=== PATIENT | female | born 1950 | race Caucasian/White ===

== ENCOUNTER 2024-11-13 01:17 | Day surgery (SDC) | payer MEDICARE, BC, SELFPAY ==
[2024-11-04 14:39] VITALS: BMI 26.1
--- NOTE | 2024-11-04 14:56 | PC.NURSE ---
[facility] has started construction of its new state of the art ER which will open Spring 2026. With this, we anticipate parking may be a challenge for some our surgical patients and families. Parking spaces are limited but are available for all Surgical, obstetrics, and ER patients sharing this lot. If you arrive and find you are having a hard time finding a parking space, please note that we understand the challenges, please drive around the hospital and park near Hospital Entrance 1. When you enter this entrance, you can ask a volunteer to direct or take you back to the surgical waiting area to check in. We appreciate everyone?s understanding of these expected challenges while we build for your future. Report to the Outpatient Waiting Room, entrance under the green pavilion located off [address], at time _09:15am on date _11/13/24 . Planned Procedure Time: _11:15am .? Time changes happen often and if your time is changed the preop area will call you the afternoon before. - You and your visitor will be asked to self-screen and do not enter if you have any COVID symptoms. Please call surgeon if you need to reschedule. - A mask is optional within the hospital at this time. Patients may have clear liquids (water, carbonated beverages, clear teas, apple juice) until 3 hours prior to surgery with a maximum of 20 ounces. - No food from midnight until time of surgery and no smoking, or chewing tobacco (or any form of nicotine). No chewing gum, candy or mints. (0815am) Take only the following medications with a SIP of water on the morning of surgery: ___Metoprolol , Tylenol if needed DO NOT STOP ANY OF YOUR OTHER PRESCRIPTION MEDICATIONS PRIOR TO SURGERY EXCEPT THE FOLLOWING Hold all vitamins and supplements for 3 days per anesthesiologist. Medications to discontinue per physician ____NONE Date to take last dose___NONE Please no make-up, nail mongolian, hairspray, perfume, deodorant, or body powder the day of surgery.? No jewelry (including any body piercings) or valuables the day of surgery, leave them at home.? Please take a shower or bath the night before, or the morning of, surgery with an antibacterial soap.? Wear comfortable, loose fitting clothing.? - Jewelry must be removed prior to entering the operating room.? Rings and piercings that are not removed may be cut off. - The hospital will not accept responsibility for valuables.? - Please leave all valuables, including medications, at home the day of surgery. If you are going home after surgery, a licensed log truck driver must drive you home.? - NO public transportation without another adult if you receive anesthesia. - We recommend that an adult stay with you for 24 hours following discharge. - We also recommend that you do not drive, make important decision, drink alcoholic beverages, or take any drugs that were not prescribed by your health care provider for at least 24 hours after your discharge time. Follow any additional instructions given to you from your surgeon. Telephone instructions given to ___Patient and asked if any additional questions and then verbalized understanding. Patient advised to call surgeon office or pre surgery nurse liaison [phone] if any additional questions.
--- NOTE | 2024-11-08 09:05 | P.HP_ITS ---
H&P: HPI History of Present Illness Date/Time: 11/08/24 09:05 Chief Complaint: urge incontinnce Narrative: successful trial of SNS Review of Systems Review of Systems: All systems reviewed & are unremarkable except as noted in HPI and below [facility] Social History Social History Smoking status: Never smoker Second hand tobacco smoke exposure: No Alcohol intake: never Substance use: never Living arrangements: with family Additional living arrangements comments: Spiritual care concerns: No Meds Home Medications and Allergies Home Medications ?Medication ?Instructions ?Recorded ?Confirmed ?Type Lactobacillus 1 cap PO DAILY 11/04/2410/13 History acidophilus-Bifidobac.animalis 33 billion cell capsule (Bilac) citalopram 20 mg tablet 20 mg PO DAILY 11/04/2410/13 History estradiol 0.01% (0.1 mg/gram) 1 appful vaginal WEEKLY 11/04/24 11/04/24 History vaginal cream fluticasone propionate 50 2 spray intranasal Q12H PRN 11/04/24 11/04/24 History mcg/actuation nasal allergy symptoms spray,suspension levocetirizine 5 mg tablet 5 mg PO DAILY PRN allergy s ymptoms 11/04/24 11/04/24 History meclizine 12.5 mg tablet 12.5 mg PO ONCE PRN dizzines s 11/04/24 11/04/24 History meloxicam 15 mg tablet 15 mg PO DAILY 11/04/2410/13 History metoprolol succinate 50 mg 50 mg PO DAILY 11/04/24 History tablet,extended release 24 hr minoxidil 2.5 mg tablet 0.625 mg PO DAILY PRN hair l oss 11/04/24 11/04/24 History montelukast 10 mg tablet 10 mg PO DAILY 11/04/2410/13 History nystatin 100,000 unit/gram topical 1 applic topical DA BEBO 11/04/24 11/04/24 History ointment omeprazole 20 mg capsule,delayed 20 mg PO DAILY 11/04/24 History release rosuvastatin 40 mg tablet 40 mg PO HS 11/04/24 5 History sitagliptin phosphate 50 1 tablet PO .BID w meals 11/04/24 History mg-metformin 500 mg tablet (Janumet) tramadol 50 mg tablet 50 mg PO Q6-8H PRN pain 10/1311/04/24 History vibegron 75 mg tablet (Gemtesa) 75 mg PO DAILY 5 11/04/24 History Allergies Allergy/AdvReac Type Severity Reaction Status Date / Time ciprofloxacin AdvReac Intermediate ITCHING Verified 11/04/24 14:34 gemfibrozil AdvReac Intermediate Itching Verified 11/04/24 14:34 and Chest pressure gentamicin AdvReac Intermediate chest Verified 11/04/24 14:34 pressure nitrofurantoin (From AdvReac Intermediate rash Verified 11/04/24 14:34 Macrobid) Exam Narrative: NAD normal breathing A+O x3 Assessment and Plan Assessment and plan (1) Urge incontinence: Code(s): N39.41 - Urge incontinence Status: Acute Assessment and Plan: InterStim implant
--- NOTE | 2024-11-08 09:05 | PM.IMHP ---
H&P: HPI History of Present Illness Date/Time: 11/08/24 09:05 Chief Complaint: urge incontinnce Narrative: successful trial of SNS Review of Systems Review of Systems: All systems reviewed & are unremarkable except as noted in HPI and below [facility] Social History Social History Smoking status: Never smoker Second hand tobacco smoke exposure: No Alcohol intake: never Substance use: never Living arrangements: with family Additional living arrangements comments: Spiritual care concerns: No Meds Home Medications and Allergies Home Medications ?Medication ?Instructions ?Recorded ?Confirmed ?Type Lactobacillus 1 cap PO DAILY 11/04/24 11/04/24 History acidophilus-Bifidobac.animalis 33 billion cell capsule (Bilac) citalopram 20 mg tablet 20 mg PO DAILY 11/04/24 11/04/24 History estradiol 0.01% (0.1 mg/gram) 1 appful vaginal WEEKLY 11/04/24 11/04/24 History vaginal cream fluticasone propionate 50 2 spray intranasal Q12H PRN 11/04/24 11/04/24 History mcg/actuation nasal allergy symptoms spray,suspension levocetirizine 5 mg tablet 5 mg PO DAILY PRN allergy symptoms 11/04/24 11/04/24 History meclizine 12.5 mg tablet 12.5 mg PO ONCE PRN dizziness 11/04/24 11/04/24 History meloxicam 15 mg tablet 15 mg PO DAILY 11/04/24 11/04/24 History metoprolol succinate 50 mg 50 mg PO DAILY 11/04/24 11/04/24 History tablet,extended release 24 hr minoxidil 2.5 mg tablet 0.625 mg PO DAILY PRN hair loss 11/04/24 11/04/24 History montelukast 10 mg tablet 10 mg PO DAILY 11/04/24 11/04/24 History nystatin 100,000 unit/gram topical 1 applic topical DAILY 11/04/24 11/04/24 History ointment omeprazole 20 mg capsule,delayed 20 mg PO DAILY 11/04/24 11/04/24 History release rosuvastatin 40 mg tablet 40 mg PO HS 11/04/24 11/04/24 History sitagliptin phosphate 50 1 tablet PO .BID w meals 11/04/24 11/04/24 History mg-metformin 500 mg tablet (Janumet) tramadol 50 mg tablet 50 mg PO Q6-8H PRN pain 11/04/24 11/04/24 History vibegron 75 mg tablet (Gemtesa) 75 mg PO DAILY 11/04/24 11/04/24 History Allergies Allergy/AdvReac Type Severity Reaction Status Date / Time ciprofloxacin AdvReac Intermediate ITCHING Verified 11/04/24 14:34 gemfibrozil AdvReac Intermediate Itching Verified 11/04/24 14:34 and Chest pressure gentamicin AdvReac Intermediate chest Verified 11/04/24 14:34 pressure nitrofurantoin (From AdvReac Intermediate rash Verified 11/04/24 14:34 Macrobid) Exam Narrative: NAD normal breathing A+O x3 Assessment and Plan Assessment and plan (1) Urge incontinence: Code(s): N39.41 - Urge incontinence Status: Acute Assessment and Plan: InterStim implant
--- NOTE | ~2024-11-13 | XR_ITS ---
EXAMINATION: FLUORO NEUROSTIM INSERT < 1HR DATE: 11/13/2024 12:24 INDICATION: Nerve stimulator implant phase 2 TECHNIQUE: Frontal and lateral fluoroscopic images of the sacrum were obtained during procedure performed by Dr. Monae. Radiologist was not present for the procedure or imaging. The amount of fluoroscopy time used during this procedure was 0.6 minutes. Total DAP was 3.669 Gycm^2. COMPARISON: None. FINDINGS: Distal tip of an Interstim lead extends from posterior to anterior through one of the S3 neural foramen. Markers indicating site of imaging are not included within the final images to assess whether this is left or right-sided. IMPRESSION: 1. Interstim lead extends through an S3 neural foramen. See procedure note for further detail including whether this was left or right-sided. Reviewed, dictated and finalized at location A.
--- NOTE | 2024-11-13 07:17 | WPDHPUPDATE1 ---
History and Physical Update Update Date/Time: 11/13/24 07:17 History and Physical has been reviewed, including an updated exam of the patient. There are NO changes in the patient's condition. Risks, benefits, and alternatives have been discussed and questions answered. Patient agrees to proceed with procedure.
[2024-11-13] MEDS: LACTATED RINGERS 1,000 ML 30 ML IV CONT (10:15)
[2024-11-13 10:48] VITALS: BP 125/69; PULSE 99; TEMP 36.3; O2SAT 98; BMI 25.8
--- NOTE | 2024-11-13 11:30 | WPDANESEPPF ---
Anes - Initial Pre Proc Eval Procedure: Operation Date: 11/13/24 11:45 Proposed Procedures p Neurostimulator Implant Phase Two - Ken Monae MD Date/Time: 11/13/24 11:30 Surgeon: Ken Monae MD Pre Op Diagnosis: sensory urge incont Patient Data Age: 74 Gender: F Height: 1.57 m Weight: 64 kg Last Vital Signs Temp 36.3 C L 11/13/24 10:48 Pulse 99 11/13/24 10:48 BP 125/69 11/13/24 10:48 Pulse Ox 98 11/13/24 10:48 O2 Del Method Room Air 11/13/24 10:48 Allergies Allergy/AdvReac Type Severity Reaction Status Date / Time ciprofloxacin AdvReac Intermediate ITCHING Verified 11/13/24 10:45 gemfibrozil AdvReac Intermediate Itching Verified 11/13/24 10:45 and Chest pressure gentamicin AdvReac Intermediate chest Verified 11/13/24 10:45 pressure nitrofurantoin (From AdvReac Intermediate rash Verified 11/13/24 10:45 Macrobid) Home Medications ?Medication ?Instructions ?Recorded ?Confirmed ?Type Lactobacillus 1 cap PO DAILY 11/04/24 11/04/24 History acidophilus-Bifidobac.animalis 33 billion cell capsule (Bilac) citalopram 20 mg tablet 20 mg PO DAILY 11/04/24 11/04/24 History estradiol 0.01% (0.1 mg/gram) 1 appful vaginal WEEKLY 11/04/24 11/04/24 History vaginal cream fluticasone propionate 50 2 spray intranasal Q12H PRN 11/04/24 11/04/24 History mcg/actuation nasal allergy symptoms spray,suspension levocetirizine 5 mg tablet 5 mg PO DAILY PRN allergy symptoms 11/04/24 11/04/24 History meclizine 12.5 mg tablet 12.5 mg PO ONCE PRN dizziness 11/04/24 11/04/24 History meloxicam 15 mg tablet 15 mg PO DAILY 11/04/24 11/04/24 History Held on 11/13/24. Instructions: Resume on 11/16/24. metoprolol succinate 50 mg 50 mg PO DAILY 11/04/24 11/04/24 History tablet,extended release 24 hr minoxidil 2.5 mg tablet 0.625 mg PO DAILY PRN hair loss 11/04/24 11/04/24 History montelukast 10 mg tablet 10 mg PO DAILY 11/04/24 11/04/24 History nystatin 100,000 unit/gram topical 1 applic topical DAILY 11/04/24 11/04/24 History ointment omeprazole 20 mg capsule,delayed 20 mg PO DAILY 11/04/24 11/04/24 History release rosuvastatin 40 mg tablet 40 mg PO HS 11/04/24 11/04/24 History sitagliptin phosphate 50 1 tablet PO .BID w meals 11/04/24 11/04/24 History mg-metformin 500 mg tablet (Janumet) tramadol 50 mg tablet 50 mg PO Q6-8H PRN pain 11/04/24 11/04/24 History vibegron 75 mg tablet (Gemtesa) 75 mg PO DAILY 11/04/24 11/04/24 History hydrocodone 5 mg-acetaminophen 325 1 tablet PO Q6H PRN pain #20 tabs 11/13/24 Rx mg tablet Laboratory Tests 11/13/24 10:27 POC Capillary Glucose 109 H mg/dl (65-105) Patient hx anesthesia problems: none Family hx anesthesia problems: none Results Review: All pre-operative results and documents have been reviewed as part of the pre-operative evaluation. [facility] Social History Social History Smoking status: Never smoker Second hand tobacco smoke exposure: No Alcohol intake: never Substance use: never Living arrangements: with family Additional living arrangements comments: Spiritual care concerns: No Anes - Eval Final PreProcedure Day of Procedure 11/13/24 11:30 Patient weight: overweight Heart: regular rate and rhythm Lungs: clear to auscultation Airway: Mallampati scale class II Neurological: alert and oriented Last oral intake: >/= 8 hours ASA classification: III Emergent: no Anesthetic plan: proceed Anesthesia type and monitoring: general GIVS and standard monitoring Results Review: All pre-operative results and documents have been reviewed as part of the pre-operative evaluation. Informed Consent: The patient's anesthetic plan and its attendant risks and benefits were discussed with the patient/family/POA. Questions were solicited and answers provided to the satisfaction of the patient/family/POA.
[2024-11-13] MEDS: ceFAZolin 2 GM in SODIUM CHLORIDE 0.9% IV 50 ML 100 ML IVPB (11:48)
[2024-11-13] MEDS: BUPIVACAINE/EPINEPHRINE 0.5% 50 ML VIAL 30 ML INFILTRATE (12:03)
[2024-11-13 12:25] VITALS: BP 115/63; PULSE 75; O2SAT 99
--- NOTE | 2024-11-13 12:34 | W.PM.PROC2 ---
Procedure Note - Detailed Date of Procedure 11/13/24 Pre-op Diagnosis sensory urge incont Post-op Diagnosis Same Procedure Performed Implantation of sacral lead 37619 Placement of implantable pulse generator [id number] Surgeon Ken Monae MD Anesthesia MAC and Local Indications This is a patient with refractory urge urinary incontinence. They have undergone a successful trial of sacral nerve stimulation. They present today for permanent implantation. They understand the risks of bleeding, infection, decreased efficacy, need for revision and battery changes. They agree to proceed Findings See dictated Description of Procedure They were correctly identified and informed consent was obtained. There brought to the operating room. There placed in the prone position. There given appropriate perioperative antibiotics. A time-out performed. I used fluoroscopy to vega out my sacral landmarks in the AP and the lateral orientation. I anesthetized the skin. I entered the S3 foramen. I monitored the needle with fluoroscopy. I got appropriate Claude and toe response at a low threshold. I made a skin suleiman. I placed a stylet. I placed the lead introducer sheath. I thinned placed and deployed to my lead. I got appropriate responses again at a low threshold. I marked out the site of the pulse generator. I anesthetized the skin and made that incision. I created a subcutaneous pocket to house the pulse generator. I tunneled the lead towards this pocket. Appropriate connections were made between the lead and the battery. It was placed in the pocket. It was programmed and impedances were checked and found to be normal. I irrigated out all wounds. I ensured hemostasis. I closed the subcutaneous tissues with 2 Vicryl. I closed the skin with 4 0 Vicryl. Glue was applied. There then awakened and transferred to the PACU in stable condition. Implants Sacral neurostimulator Estimated Blood Loss 5 Drains No Packing No Pathology None sent Condition Stable Disposition PACU
[2024-11-13 12:55] VITALS: BP 116/60; PULSE 84; O2SAT 98
[2024-11-13 13:25] VITALS: BP 110/58; PULSE 85; RESP 16
== END 2024-11-13 13:31 | disposition home or self-care (01) ==
PROVIDERS: Visit Provider Urology
PROC: (CPT 64561; principal; 2024-11-13 11:45)
DX: N39.41 Urge incontinence (principal); Z79.84 Long term (current) use of oral hypoglycemic drugs
CPT/HCPCS: 64561; 64590; 82948; 99199; J0690; C1767; C1778; C1787; J2004; J2250; J3010; J7120